=== PATIENT | male | born 1930 | race Caucasian/White ===

== ENCOUNTER 2016-05-29 15:31 | Inpatient (IN) | payer MEDICARE, BC ==
[~2016-05-29] VITALS: Ht 177.8 cm; Wt 92.1 kg
[2016-05-29] MEDS ORDERED: ASPIR 8181 MG PO (23:38)
[2016-05-29] MEDS ORDERED: FERROUS SULFAT325 M2 PO (23:38)
[2016-05-29] MEDS ORDERED: ZESTRIL/PRINIVI10 MG PO (23:40)
[2016-05-29] MEDS ORDERED: NITROSTAT 0.40.4 MG SL (23:40)
[2016-05-29] MEDS ORDERED: OXYCODONE HCL5 MG PO (23:41)
[2016-05-29] MEDS ORDERED: MIRALAX17 GM PO (23:42)
[2016-05-29] MEDS ORDERED: PROTONIX 40 MG40 M1 PO (23:42)
[2016-05-29] MEDS ORDERED: FLOMAX 0.4 MG0.4 MG PO (23:42)
[2016-05-30 05:27] LABS: HEMOGLOBIN 11.2 gm/dl (14.0-17.5); RED BLOOD COUNT 4.13 M/UL (4.20-5.50); WHITE BLOOD COUNT 7.4 K/UL (4.5-11.0)
[2016-05-30 05:47] LABS: BUN/CREATININE RATIO 24 (0-10)
[2016-06-01 04:08] LABS: HEMOGLOBIN 10.4 gm/dl (14.0-17.5); RED BLOOD COUNT 3.81 M/UL (4.20-5.50)
[2016-06-01 04:28] LABS: BUN/CREATININE RATIO 24 (0-10)
[2016-06-02 04:32] LABS: HEMOGLOBIN 10.4 gm/dl (14.0-17.5); RED BLOOD COUNT 3.8 M/UL (4.20-5.50); WHITE BLOOD COUNT 7.4 K/UL (4.5-11.0)
[2016-06-02 04:49] LABS: BUN/CREATININE RATIO 25 (0-10)
[2016-06-03 06:01] LABS: HEMOGLOBIN 10.4 gm/dl (14.0-17.5); RED BLOOD COUNT 3.84 M/UL (4.20-5.50)
[2016-06-03 06:13] LABS: BUN/CREATININE RATIO 32 (0-10)
== END 2016-06-04 15:15 | DRG 243 ==
LOC: M/S 15:44 → ZEROF 15:44 → M/S 19:46
PROVIDERS: Orthopaedic Surgery; ADMIT Family Medicine
PROC: 02HK3JZ Insertion of Pacemaker Lead into Right Ventricle, Percutaneous Approach (ICD-10-PCS; principal; 2016-05-29)
PROC: 0JH606Z Insertion of Pacemaker, Dual Chamber into Chest Subcutaneous Tissue and Fascia, Open Approach (ICD-10-PCS; principal; 2016-05-29)
PROC: 02H63JZ Insertion of Pacemaker Lead into Right Atrium, Percutaneous Approach (ICD-10-PCS; principal; 2016-05-29)
PROC: 0QSJ04Z Reposition Right Fibula with Internal Fixation Device, Open Approach (ICD-10-PCS; 2016-05-31)
PROC: 0QSG04Z Reposition Right Tibia with Internal Fixation Device, Open Approach (ICD-10-PCS; 2016-05-31)
DX: I44.1 Atrioventricular block, second degree (principal); E87.2 Acidosis; S82.851A Displaced trimalleolar fracture of right lower leg, initial encounter for closed fracture; W18.39XA Other fall on same level, initial encounter; Y93.01 Activity, walking, marching and hiking; Y92.009 Unspecified place in unspecified non-institutional (private) residence as the place of occurrence of the external cause; R00.1 Bradycardia, unspecified; R55 Syncope and collapse; I45.81 Long QT syndrome; N30.90 Cystitis, unspecified without hematuria; D64.9 Anemia, unspecified; G20 Parkinson's disease; R32 Unspecified urinary incontinence; R45.1 Restlessness and agitation; F03.90 Unspecified dementia, unspecified severity, without behavioral disturbance, psychotic disturbance, mood disturbance, and anxiety; B96.89 Other specified bacterial agents as the cause of diseases classified elsewhere; I10 Essential (primary) hypertension; N40.0 Benign prostatic hyperplasia without lower urinary tract symptoms; Z87.891 Personal history of nicotine dependence; Z79.82 Long term (current) use of aspirin; Z79.891 Long term (current) use of opiate analgesic; Z79.899 Other long term (current) drug therapy; Z28.21 Immunization not carried out because of patient refusal
CPT/HCPCS: 33208; 36415; 71010; 73610; 76000; 80048; 81001; 83735; 85025; 87077; 87086; 87186; 93005; 97110; 97530; C1713; C1785; C1898; G0378; G0379; J0690; J0696; J1200; J1644; J1650; J2250; J2270; J2370; J2710; J3010; J3370; J7040; J7050; J7070; J7120